=== PATIENT | female | born 1965 | race Asian ===

== ENCOUNTER → 2017-09-03 | Outpatient (CLI) | payer MEDICARE ==
[~2017-09-03] MED LIST: AMLO10TA2 PO; ATOR-2 PO; CODE1CAP7 PO; CYCL-259 PO; DULO60CA7 PO; ESTR0.9T PO; ESTR1TAB15 PO; FENO145T13 PO; GABA600T2 PO; HYDR25TA6 PO; INSU100I32 SQ-INSULIN; LIDO35.46 TD; LISI40TA PO; MELO15TA24 PO; METF750T2 PO; MODA200T2 PO; NYST1000 PO; OXYC-307 PO; PARO10TA3 PO; POTA20TA6 PO; SITA100T PO
== END | disposition home or self-care (01) ==
LOC: RAD 15:18
PROVIDERS: ATTEND Family Medicine
DX: K59.03 Drug induced constipation (principal); T40.2X5A Adverse effect of other opioids, initial encounter; Z90.49 Acquired absence of other specified parts of digestive tract
CPT/HCPCS: 74021

== ENCOUNTER → 2017-11-04 | Outpatient (CLI) | payer MEDICARE ==
[~2017-11-04] MED LIST changes: +FENTANYL PF 100 MCG/2ML ONE; +MIDAZOLAM 1 MG/ML, 5ML ONE
== END | disposition home or self-care (01) ==
LOC: RAD 11:55
PROVIDERS: ATTEND Family Medicine
DX: M47.816 Spondylosis without myelopathy or radiculopathy, lumbar region (principal); E23.7 Disorder of pituitary gland, unspecified; Z53.8 Procedure and treatment not carried out for other reasons
CPT/HCPCS: 73721; 99156; 99157; J2250; J3010

== ENCOUNTER 2017-11-05 07:18 | Day surgery (SDC) | payer MEDICARE ==
[~2017-11-05] VITALS: Ht 167.6 cm; Wt 78.9 kg
[~2017-11-05 07:18] MED LIST changes: -FENTANYL PF 100 MCG/2ML ONE; -MIDAZOLAM 1 MG/ML, 5ML ONE
[2017-11-05] MEDS ORDERED: LACTATED RINGERS 1,000 ML IV SCH (08:40)
[2017-11-05 08:45] VITALS: BP 168/105
[2017-11-05] MEDS ORDERED: MIDAZOLAM 1 MG/ML, 2ML ONE (09:33)
[2017-11-05] MEDS ORDERED: FENTANYL PF 100 MCG/2ML ONE (09:34)
[2017-11-05] MEDS ORDERED: PROPOFOL 10 MG/ML, 20ML ONE (09:50)
[2017-11-05] MEDS ORDERED: ONDANSETRON 2MG/ML, 2ML ONE (09:50)
[2017-11-05] MEDS ORDERED: DEXAMETHASONE 4 MG/ML, 5ML ONE (09:50)
[2017-11-05] MEDS ORDERED: SUCCINYLCHOLINE 20 MG/ML, 10ML ONE (09:50)
[2017-11-05] MEDS ORDERED: GADOBUTROL 10 MMOL/10 ML VIAL ONE (12:15)
== END 2017-11-05 13:15 ==
LOC: OUT 07:18 → EDSTATUS 09:30 → OUT 13:15
PROVIDERS: ATTEND Family Medicine
DX: M25.551 Pain in right hip (principal); E11.9 Type 2 diabetes mellitus without complications; E03.9 Hypothyroidism, unspecified; Z88.8 Allergy status to other drugs, medicaments and biological substances; Z88.6 Allergy status to analgesic agent; Z88.1 Allergy status to other antibiotic agents; Z91.040 Latex allergy status
CPT/HCPCS: 70553; 72141; 73721; 82962; A9585; J0330; J1100; J2250; J2405; J2704; J3010; J7120

== ENCOUNTER 2018-05-02 17:25 | Emergency (ER) | payer MEDICARE ==
[~2018-05-02] VITALS: Ht 167.6 cm; Wt 75.5 kg
[~2018-05-02 17:25] MED LIST changes: -AMLO10TA2 PO; +AMLO10TA6 PO; -FENO145T13 PO; +FENO145T30 PO
[2018-05-02] MEDS ORDERED: SODIUM CHLORIDE FLUSH 10ML SYR IVF ONE (18:00)
[2018-05-02 18:31] LABS: BASOPHILS # (AUTO) 0.04 x10^3/uL (0-0.1); BASOPHILS % (AUTO) 0 % (0-1); EOSINOPHILS # (AUTO) 0.21 x10^3/uL (0-0.4); EOSINOPHILS % (AUTO) 2 % (1-7); LYMPHOCYTES # (AUTO) 1.68 x10^3/uL (1-3.4); LYMPHOCYTES % (AUTO) 14 % (22-44); MD NO; MEAN CORPUSCULAR HEMOGLOBIN 30.1 pg (27.0-34.8); MEAN CORPUSCULAR HGB CONC 33.9 g/dL (32.4-35.8); MEAN CORPUSCULAR VOLUME 88.7 fL (80-100); MEAN PLATELET VOLUME 9.3 fL (7.4-10.4); MONOCYTES # (AUTO) 0.53 x10^3/uL (0.2-0.8); MONOCYTES % (AUTO) 5 % (2-9); NEUTROPHILS # (AUTO) 9.22 x10^3/uL (1.8-6.8); NEUTROPHILS % (AUTO) 79 % (42-75); PLATELET COUNT 318 x10^3/uL (130-400); RED BLOOD COUNT 4.84 x10^6/uL (3.82-5.3); RED CELL DISTRIBUTION WIDTH 13.9 % (9.6-15.2)
[2018-05-02 18:39] LABS: ALANINE AMINOTRANSFERASE 19 U/L (12-78); ALBUMIN 2.7 g/dL (3.4-5.0); ANION GAP 9 mmol/L (5-15); CALCIUM 9.1 mg/dL (8.5-10.1); CHLORIDE 105 mmol/L (98-107); CREATININE 0.97 mg/dL (0.55-1.02)
[2018-05-02 18:42] LABS: ALKALINE PHOSPHATASE 116 U/L (45-117); BILIRUBIN,TOTAL 0.4 mg/dL (0.2-1.0); TOTAL PROTEIN 7.9 g/dL (6.4-8.2)
[2018-05-02 19:16] LABS: MICROSCOPIC NOT IND
[2018-05-02 19:19] LABS: CULTURE INDICATED? NO
[2018-05-02] MEDS ORDERED: HYDROmorphone 2 MG/ML, 1ML IVPush PRN (20:00)
[2018-05-02] MEDS ORDERED: SODIUM CHLORIDE 0.9% 1,000ML IVBOLUS ONE (20:00)
[2018-05-02] MEDS ORDERED: ONDANSETRON ODT 4 MG PO ONE (20:00)
[2018-05-02] MEDS ORDERED: HYDROmorphone 2 MG/ML, 1ML ONE (20:03)
[2018-05-02] MEDS ORDERED: ONDANSETRON ODT 4 MG ONE (20:03)
[2018-05-02] MEDS ORDERED: OMNIPAQUE 350 MG/ML, 100ML BOTTLE ONE (20:17)
[2018-05-02 21:17] VITALS: BP 116/65
== END 2018-05-02 21:57 | disposition home or self-care (01) ==
LOC: ED 21:27
DX: K85.00 Idiopathic acute pancreatitis without necrosis or infection (principal); E11.9 Type 2 diabetes mellitus without complications; I10 Essential (primary) hypertension; E78.5 Hyperlipidemia, unspecified; Z90.89 Acquired absence of other organs; Z90.49 Acquired absence of other specified parts of digestive tract; Z90.710 Acquired absence of both cervix and uterus
CPT/HCPCS: 36415; 74177; 76700; 80053; 81003; 83605; 83690; 84145; 85025; 87040; 99285; J1170; J7030; Q0162; Q9967

== ENCOUNTER → 2018-10-18 | Outpatient (CLI) | payer OTHER ==
[~2018-10-18] MED LIST changes: -AMLO10TA6 PO; +AMLO10TA8 PO; -GABA600T2 PO; +GABA600T7 PO
== END | disposition home or self-care (01) ==
LOC: CFH 11:54
PROVIDERS: ATTEND Family Medicine
DX: R22.1 Localized swelling, mass and lump, neck (principal)
CPT/HCPCS: 76536